=== PATIENT | male | born 1980 | race American Indian/Alaskan Native ===

== ENCOUNTER 2017-08-14 17:16 | Emergency (ER) | payer SELFPAY ==
[2017-08-14 17:25] VITALS: BP 127/88
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
== END 2017-08-14 19:54 | disposition left against medical advice (07) ==
LOC: ED 17:16
DX: K64.4 Residual hemorrhoidal skin tags (principal)
CPT/HCPCS: 99282